=== PATIENT | male | born 2005 | race Hispanic/Latino ===

== ENCOUNTER 2023-12-16 22:46 | Emergency (ER) | payer OTHER ==
[~2023-12-16] VITALS: Ht 175.3 cm; Wt 61.2 kg
[2023-12-16 22:49] VITALS: BP 161/81; PULSE 72; RESP 18
[2023-12-16] MEDS: IBUPROFEN 600 MG TABLET PO ONE (23:20)
== END 2023-12-17 00:08 | disposition home or self-care (01) ==
LOC: EDH 22:46
DX: S62.396A Other fracture of fifth metacarpal bone, right hand, initial encounter for closed fracture (principal); Y04.0XXA Assault by unarmed brawl or fight, initial encounter; Y93.89 Activity, other specified; Y92.89 Other specified places as the place of occurrence of the external cause; Y99.8 Other external cause status
CPT/HCPCS: 29125; 73130